=== PATIENT | male | born 1995 | race Hispanic/Latino ===

== ENCOUNTER 2025-05-21 19:43 | Inpatient (IN) | payer SELFPAY ==
[2025-05-21] MEDS ORDERED: MORPHINE 4 MG/ML SYR IV PRN (21:23)
[2025-05-21] MEDS ORDERED: ONDANSETRON 4 MG/2 ML VIAL IV PRN (21:24)
[2025-05-21] MEDS: PIPER TAZO 3.375 GM in NA CHLORIDE 0.9% 100 ML IV ONE (22:29)
[2025-05-21] MEDS: D5 0.45 NS 1,000 ML IV SCH (22:29)
[2025-05-21 22:45] VITALS: BMI 31.6
[2025-05-21] MEDS: POTASSIUM CL SA 10 MEQ TAB PO ONE (22:46)
--- NOTE | 2025-05-22 01:55 | P.HP ---
Certification for Inpatient Patient admitted to: Inpatient With expected LOS: >2 Midnights Patient will require the following post-hospital care: None Practitioner: I am a practitioner with admitting privileges, knowledge of patient current condition, hospital course, and medical plan of care. Services: Services provided to patient in accordance with Admission requirements found in Title 42 Section 412.3 of the Code of Federal Regulations Patient History Date of Service: 05/21/25 Reason for admission: Acute appendicitis. History of Present Illness: Patient is a pleasant 30-year-old male with no past medical history, who was transferred from [facility] with diagnosis of acute appendicitis, prior to transfer, Dr. Schuster was consulted for surgery in a.m., accepted and requested patient to be n.p.o. after midnight. Patient states when he woke up in the morning, he started having severe right lower quadrant abdominal pain, states the pain progressively worsening which then prompted him to go to [facility] ER. Patient describes the pain as constant, aching, does not radiate, associated with nausea, but no vomiting, no chest pain, or shortness of breath, fever or chills. On admission assessment, patient was fully awake, alert and oriented x 3, denies of any discomfort at this time. Patient states the pain is much better after receiving pain medication prior to transfer. Patient appears not to be in any acute distress at this time. Allergies No Known Allergies Allergy (Unverified 05/21/25 21:13) Home Medications: NK [No Home Meds] 05/21/25 - Past Medical/Surgical History Has patient received pneumonia vaccine in the past: No Diabetic: No -: Patient states he does not have any past medical history. -: States he does not have any prior surgical history. - Family History Family History: Reviewed- Non-Contributory - Family History Father Notes: n/a Mother Notes: n/a - Social History Smoking Status: Never smoker Alcohol use: No CD- Drugs: No Place of Residence: Home Review of Systems 10-point ROS is otherwise unremarkable Gastrointestinal: Nausea, Abdominal Pain Physical Examination - Physical Exam General: Alert, In no apparent distress, Oriented x3 HEENT: Atraumatic, Normocephalic, PERRLA, Mucous membr. moist/pink, Sclerae nonicteric Neck: Supple, 2+ carotid pulse no bruit, No LAD, Without JVD or thyroid abnormality Respiratory: Clear to auscultation bilaterally, Normal air movement Cardiovascular: No edema, Normal pulses, Regular rate/rhythm, Normal S1 S2, Abnormal S3, No gallops, No rubs, No murmurs Gastrointestinal: Normal bowel sounds, W/out hepatomegaly, No ascites, No masses, No rebound, No guarding, Tenderness Musculoskeletal: No clubbing, No swelling, No contractures, No erythema, No tenderness, No warmth Integumentary: No rashes, No breakdown, No significant lesion, No tenderness/swelling, No erythema, No warmth, No cyanosis Neurological: Normal gait, Normal speech, Normal strength at 5/5 x4 extr, Normal tone, Sensation intact, Cranial nerves 3-12 intact, Normal reflexes 2+, Normal affect Lymphatics: No axilla or inguinal lymphadenopathy - Studies Laboratory Data (last 24 hrs) 05/21/25 22:20 Potassium 3.4 L Male Exam - Male Exam Inguinal exam: No hernias Assessment and Plan - Plan Patient is a pleasant 30-year-old male admitted to inpatient with diagnosis of acute appendicitis. Patient is scheduled for surgery in a.m. by Dr. Schuster. (1)Acute appendicitis. Patient had CT of the abdomen and pelvis done at [facility], with impression of acute appendicitis. -NPO after midnight. -Consult Dr. Schuster. -Zosyn 3.375 g IV every 8 hours. -Morphine 4 mg IV as needed every 4 hours. -Zofran 4 mg IV as needed every 6 hours. -IV D5 1/2 NS at 100 mL/ hr. Patient is NPO after midnight. Order preop lab work in the morning and EKG. (2)Hypokalemia. - Potassium 40 mEq KCl p.o. x 1. - IV D5 1/2 with potassium as noted above. -Follow-up CMP in the morning. (3)Explained entire treatment plan to the patient and present at the bedside, solicit questions answered and voiced understanding. Discharge Plan: Home Plan to discharge in: 72 Hours - Advance Directives Does patient have a Living Will: No Does patient have a Durable POA for Healthcare: No - Code Status/Comfort Care Code Status Assessed: Yes Code Status: Full Code Critical Care: No Time Spent Managing Pts Care (In Minutes): 55
[2025-05-22] MEDS: PIPER TAZO 3.375 GM in NA CHLORIDE 0.9% 100 ML IV SCH (06:35)
--- NOTE | 2025-05-22 06:58 | P.PN ---
Date of Service: 05/22/25 Subjective: feeling better today denies prior medical issues family updated afebrile Physical Exam: GEN: Alert, oriented, NAD CV: Regular rate and rhythm, no edema Pulm:Nonlabored respirations on room air, clear bilaterally ABD: soft, RLQ tenderness Neuro: Normal speech, normal affect Problem List: Acute appendicitis presents as direct admit from [facility] with RUQ pain, nausea. Diagnosed with acute appendicitis prior to transfer. Imaging done at [facility]. Dr. Schuster consulted; planning for lap appy today NPO for surgery IV Zosyn for now (05/21-) pain control, antiemetics continue IV hydration while NPO Labs unremarkable VTE: SCD Code: Full Dispo: Home, likely later this evening vs tomorrow Pending timing of surgery, recovery Time Spent Managing Pts Care (In Minutes): 55
[2025-05-22 07:27] LABS: Absolute Lymphocytes (CBC) 2.4 K/uL (0.7-4.9); Hematocrit 45.4 % (39.6-49.0); Hemoglobin 16.0 g/dL (13.6-17.9); MCH 31.0 pg (27.0-35.0); MCHC 35.2 g/dL (32.0-36.0); MCV 88.0 fL (80-100); MPV 10.1 fL (7.6-11.3); Nucleated RBC Absolute Count 0.0 (0-0); Nucleated Red Blood Cells % 0.1 % (0-0); RBC Red Blood Cell Count 5.16 M/uL (4.33-5.43); White Blood Count 8.30 thou/uL (4.3-10.9)
[2025-05-22 07:39] LABS: ALT/SGPT 39.0 U/L (16-61); AST/SGOT 18.0 U/L (15-37); Albumin 3.3 g/dL (3.4-5.0); Albumin/Globulin Ratio 1.1 (1.1-1.8); Alkaline Phosphatase 82.0 U/L (45-117); Anion Gap 11.1 mEq/L (5.0-15.0); BUN Blood Urea Nitrogen 11.0 mg/dL (7-18); Globulin 3.1 g/dL (2.3-3.5); Glucose Level 122.0 mg/dL (74-106); Magnesium 2.1 mg/dL (1.6-2.4); Potassium 4.1 mEq/L (3.5-5.1)
[2025-05-22] MEDS: Ringers Lactate 1,000 ML IV ONE (09:50)
[2025-05-22] MEDS ORDERED: FENTANYL CITR 100 MCG/2 ML ONE (10:07)
[2025-05-22] MEDS ORDERED: ONDANSETRON 4 MG/2 ML VIAL ONE (10:07)
[2025-05-22] MEDS ORDERED: LIDOCAINE 2% MPF 5 ML VIAL ONE (10:07)
[2025-05-22] MEDS ORDERED: ROCURONIUM 50 MG/5 ML VIAL IV ONE (10:07)
[2025-05-22] MEDS ORDERED: MIDAZOLAM HCL 2 MG/2 ML INJ ONE (10:07)
[2025-05-22] MEDS: SUCCINYLCHOLINE 20 MG/ML (10 ML) IV ONE (10:14)
[2025-05-22] MEDS: SUGAMMADEX SODIUM 200 MG/2 ML VIAL IV ONE (10:14)
--- NOTE | 2025-05-22 10:54 | P.BOP ---
Preoperative diagnosis: acute appendicitis Postoperative diagnosis: same Primary procedure: Laparoscopic appendectomy Estimated blood loss: <10cc Specimen: mariano Findings: as above Anesthesia: General Complications: None Transferred to: Recovery Room Condition: Good
--- NOTE | 2025-05-22 10:57 | CON ---
Diagnosis: Acute appendicitis. History Of Present Illness: This is the case of a 30-year-old patient, transferred from [facility] due to acute appendicitis. The pain started 24 hours before, periumbilical and moved to the righ t lower quadrant, associated with nausea. He does not remember eating anything out of the usual. De nies any family member sick at home. Allergies: NONE. Medications: None. Past Medical History: None. Family History: Noncontributory. Social History: He does not smoke. He does not drink alcohol. Review of Systems: Nausea, abdominal pain. No fever. No shortness of breath. No chest pain. Review of systems 10 poi nts otherwise unremarkable. Physical Examination: Vital Signs: Reviewed. General: The patient is awake, alert. HEENT: Pupils are equal and reactive. Anicteric. Neck: Supple. Chest: Clear. Heart: S1, S2. Abdomen: Periumbilical right lower quadrant tenderness with guarding. Psoas signs positive. Rovsin g sign positive. Rectal: Deferred. Extremities: Good capillary refill. Neuro: Cranial nerves 2 through 12 grossly within normal limits. Laboratory Data: WBC count of 8.3, hemoglobin of 16, platelets of 186 with potassium of 3.4, glucose 122. The CAT scan of the abdomen and pelvis from [facility], it was transferred as acute appen dicitis. Assessment: Acute appendicitis, right lower quadrant abdominal pain, guarding or rebound. The benef its, alternatives, and risks of laparoscopic possible open appendectomy fully explained, which includ e, but not limited to infection, bleeding, damage to adjacent structures, anesthesia complication, ab scess, DC, and even . He also understands this may not relieve the symptoms. He might need mor e than one surgical intervention. He understood, signed a consent. JOSE ELIAS/PHOEBE Voice ID: [id number] Report ID: [id number]
[2025-05-22] MEDS ORDERED: HYDROCODONE/APAP 5/325 MG TAB PO PRN (11:10)
[2025-05-22] MEDS: MIDAZOLAM HCL 2 MG/2 ML INJ ONE (11:19)
[2025-05-22] MEDS: HYDROMORPHONE HCL 1 MG/ML INJ ONE ×2 (11:44→12:05)
[2025-05-22 12:02] VITALS: O2SAT 95
[2025-05-22 16:29] VITALS: BP 110/56; TEMP 97.5
--- NOTE | 2025-05-23 06:40 | P.DS ---
Admission Date: 05/21/25 Discharge Date: 05/22/25 Disposition: ROUTINE DISCHARGE Discharge Condition: GOOD Reason for Admission: Acute appendicitis. Consultations: General Surgery - Dr. Schuster Brief History of Present Illness: 30 yo M, PMH: None Patient who was transferred from [facility] with diagnosis of acute appendicitis, prior to transfer, Dr. Schuster was consulted for surgery in a.m., accepted and requested patient to be n.p.o. after midnight. Patient states when he woke up in the morning, he started having severe right lower quadrant abdominal pain, states the pain progressively worsening which then prompted him to go to [facility] ER. Patient describes the pain as constant, aching, does not radiate, associated with nausea, but no vomiting, no chest pain, or shortness of breath, fever or chills. On admission assessment, patient was fully awake, alert and oriented x 3, denies of any discomfort at this time. Patient states the pain is much better after receiving pain medication prior to transfer. Patient appears not to be in any acute distress at this time. Hospital Course: Problem List: Acute appendicitis, s/p lap appy (05/22) Physician discharge instructions: Patient presented as a direct admit from [facility] with RUQ pain and nausea secondary to acute appendicitis. He had imaging done at [place] which was consistent with acute appendicitis. Lab work on admission was unremarkable. Patient was evaluated by Dr. Schuster and underwent lap appendectomy on 05/22. Patient was monitored post-operatively and deemed stable for discharge. Follow up with Dr. Schuster in his office in 1 week. Patient received IV zosyn while hospitalized and is to complete 5 days of oral Augmentin on discharge. No heavy lifting > 10 lbs for 4-6 weeks unless otherwise instructed by Dr. Schuster at follow up appointment Do no submerge wound underwater. Medications: Augmentin x5 days [place] as needed for pain Follow up: PCP 3-[address] Schuster ([phone]) in his office in 1 week Please call to schedule / confirm appointments Physical Exam: GEN: Alert, oriented, NAD CV: Regular rate and rhythm, no edema Pulm:Nonlabored respirations on room air, clear bilaterally ABD: soft, clean surgical dressing in place Neuro: Normal speech, normal affect Vital Signs/Physical Exam: Temp Pulse Resp BP Pulse Ox 97.5 F 60 15 110/56 L 99 05/22/25 16:00 05/22/25 16:00 05/22/25 16:00 05/22/25 16:00 05/22/25 16:00 Laboratory Data at Discharge: WBC 8.30 thou/uL (4.3-10.9) 05/22/25 06:20 Hgb 16.0 g/dL (13.6-17.9) 05/22/25 06:20 Hct 45.4 % (39.6-49.0) 05/22/25 06:20 Plt Count 186 thou/uL (152-406) 05/22/25 06:20 Sodium 140 mEq/L (136-145) 05/22/25 06:20 Potassium 4.1 mEq/L (3.5-5.1) D 05/22/25 06:20 BUN 11 mg/dL (7-18) 05/22/25 06:20 Creatinine 1.28 mg/dL (0.70-1.30) 05/22/25 06:20 Glucose 122 mg/dL (74-106) H 05/22/25 06:20 Magnesium 2.1 mg/dL (1.6-2.4) 05/22/25 06:20 Total Bilirubin 1.0 mg/dL (0.2-1.0) 05/22/25 06:20 AST 18 U/L (15-37) 05/22/25 06:20 ALT 39 U/L (16-61) 05/22/25 06:20 Alkaline Phosphatase 82 U/L (45-117) 05/22/25 06:20 Home Medications: Amox/Clavulanate [Augmentin 875-125 Tab] 1 tab PO BID 5 Days #10 tab 05/22/25 Hydrocodone 5/APAP 325 [[place] 5/325*] 1 tab PO Q8H PRN #15 tab 05/22/25 New Medications: Amox/Clavulanate [Augmentin 875-125 Tab] 1 tab PO BID 5 Days #10 tab Hydrocodone 5/APAP 325 [[place] 5/325*] 1 tab PO Q8H PRN #15 tab PRN Reason: Pain Scale 5-7 (Moderate) Physician Discharge Instructions: Physician discharge instructions: Patient presented as a direct admit from [facility] with RUQ pain and nausea secondary to acute appendicitis. He had imaging done at [facility] which was consistent with acute appendicitis. Lab work on admission was unremarkable. Patient was evaluated by Dr. Schuster and underwent lap appendectomy on 05/22. Patient was monitored post-operatively and deemed stable for discharge. Follow up with Dr. Schuster in his office in 1 week. Patient received IV zosyn while hospitalized and is to complete 5 days of oral Augmentin on discharge. No heavy lifting > 10 lbs for 4-6 weeks unless otherwise instructed by Dr. Schuster at follow up appointment Do no submerge wound underwater. Medications: Augmentin x5 days [place] as needed for pain Follow up: PCP 3-[address] Schuster ([phone]) in his office in 1 week Please call to schedule / confirm appointments Keep surgical area clean and dry for 48h then may remove outer dressing and shower but keep cassy intact. Cover cassy with antibiotic ointment and bandaid. Activity: No lifting more than 10 lbs Time spent managing pt's care (in minutes): 45
== END 2025-05-22 18:28 | disposition home or self-care (01) | DRG 399 ==
LOC: 2ND 19:43
PROVIDERS: ADMIT Hospitalist; ATTEND Hospitalist
PROC: 0DTJ4ZZ Resection of Appendix, Percutaneous Endoscopic Approach (ICD-10-PCS; principal; 2025-05-22 10:30)
DX: K35.80 Unspecified acute appendicitis (principal); Z79.891 Long term (current) use of opiate analgesic
CPT/HCPCS: 36415; 80053; 82947; 83735; 84132; 85025; 88304; 94010; J0330; J1171; J2003; J2250; J2405; J2543; J2704; J3010; J7120; J7799